=== PATIENT | male | born 1970 | race Two or more races ===

== ENCOUNTER 2017-10-31 15:45 | Emergency (ER) | payer OTHER ==
[2017-10-31 15:53] VITALS: BP 126/70; PULSE 62; TEMP 99.1; BMI 25.0
--- NOTE | 2017-10-31 15:55 | PDOC ---
Rapid Medical Evaluation Chief Complaint: Pain, Acute Time Seen by Provider: 10/31/17 15:51 Medical Evaluation: Allergies Allergy/AdvReac Type Severity Reaction Status Date / Time No Known Allergies Allergy Verified 03/27/16 17:14 10/31/17 15:52 I have performed a brief in person evaluation of this patient. The patient presents with chief complaint of : right elbow pain x 1 month worsening in last 3 days. 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
--- NOTE | 2017-10-31 16:31 | PDOC ---
History of Present Illness - General Chief Complaint: Pain, Acute Stated Complaint: RT ARM PAIN, injury Time Seen by Provider: 10/31/17 15:51 - History of Present Illness Initial Comments: 10/31/17 16:28 47-year-old male without comorbidities presents for evaluation of atraumatic right elbow pain times one month. Past History - Past Medical History Allergies/Adverse Reactions: Allergies Allergy/AdvReac Type Severity Reaction Status Date / Time No Known Allergies Allergy Verified 10/31/17 15:53 Home Medications: Ambulatory Orders NK [No Known Home Medication] 10/31/17 CVA: No COPD: No - Suicide/Smoking/Psychosocial Hx Smoking History: Never smoked Information on smoking cessation initiated: No Hx Alcohol Use: No Drug/Substance Use Hx: No Substance Use Type: None Review of Systems - Review of Systems Musculoskeletal: Yes: See HPI, Joint Pain All Other Systems: Reviewed and Negative *Physical Exam - Vital Signs Last Vital Signs Temp Pulse Resp BP Pulse Ox 99.1 F 62 18 126/70 99 10/31/17 15:51 10/31/17 15:51 10/31/17 15:51 10/31/17 15:51 10/31/17 15:51 - Physical Exam Comments: Right elbow skin color and temperature are normal. Range of motion is full and nonpainful. There is tenderness over the lateral epicondyle. No other areas of tenderness. There is pain at the lateral epicondyle with resisted wrist extension and resisted supination. No evidence of instability. No gross sensorimotor deficits. He is neurovascularly intact. 10/31/17 16:28 Medical Decision Making - Medical Decision Making Lateral epicondylitis right elbow. I'll give him a wrist splint for rest. Radiographs today were negative. No evidence of acute fracture trauma or distractive process. 10/31/17 16:29 *DC/Admit/Observation/Transfer Diagnosis at time of Disposition: Right elbow pain, Lateral epicondylitis - Discharge Dispostion Disposition: HOME Condition at time of disposition: Stable Decision to Admit order: No - Referrals Referrals: Aide Webb NP [Primary Care Provider] - Varinder Chaparro MD [Staff Physician] - - Patient Instructions Printed Discharge Instructions: Lateral Epicondylitis, DI for Lateral Epicondylitis (Tennis Elbow) Additional Instructions: Wear the wrist splint for rest. Continue with Advil and Tylenol as directed. Follow-up with orthopedic surgery in 2-3 days for further evaluation and treatment options. Return to the emergency room should symptoms worsen or go unresolved. - Post Discharge Activity
== END 2017-10-31 17:05 | disposition home or self-care (01) ==
LOC: JERFT 15:45
DX: M25.521 Pain in right elbow (principal); M77.11 Lateral epicondylitis, right elbow
CPT/HCPCS: 73070-TC-RT-FY; 73090-TC-RT-FY; 99281-25

== ENCOUNTER 2019-04-19 09:46 | Emergency (ER) | payer OTHER ==
[2019-04-19 10:10] VITALS: BP 118/78; PULSE 74; TEMP 98.2; BMI 24.2
[2019-04-19] MEDS ORDERED: KETOROLAC TROMETHAMINE 60 MG/2 ML VIAL IM ONE (11:30)
[2019-04-19] MEDS ORDERED: LIDOCAINE 5% TOPICAL PATCH TP ONE (11:30)
[2019-04-19] MEDS ORDERED: LIDOCAINE 5% TOPICAL PATCH ONE (12:13)
[2019-04-19] MEDS ORDERED: KETOROLAC TROMETHAMINE 60 MG/2 ML VIAL ONE (12:13)
--- NOTE | 2019-04-19 13:35 | PDOC ---
History of Present Illness <Grisel Golden - Last Filed: 04/19/19 13:58> - General History Source: Patient Exam Limitations: No Limitations <Oriana Tolentino - Last Filed: 04/22/19 10:15> - General Chief Complaint: Chest Pain Stated Complaint: BACK PAIN Time Seen by Provider: 04/19/19 10:44 Past History <Grisel Golden - Last Filed: 04/19/19 13:58> - Travel Traveled outside of the country in the last 30 days: No Close contact w/someone who was outside of country & ill: No - Past Medical History CVA: No COPD: No - Immunization History Immunization Up to Date: Yes - Psycho Social/Smoking Cessation Hx Smoking History: Never smoked Have you smoked in the past 12 months: No Information on smoking cessation initiated: No Hx Alcohol Use: No Drug/Substance Use Hx: No Substance Use Type: None <Oriana Tolentino - Last Filed: 04/22/19 10:15> - Past Medical History Allergies/Adverse Reactions: Allergies Allergy/AdvReac Type Severity Reaction Status Date / Time No Known Allergies Allergy Verified 04/19/19 10:05 Home Medications: Ambulatory Orders Cyclobenzaprine HCl [Flexeril -] 10 mg PO HS #10 tablet 04/19/19 Ibuprofen 600 mg PO Q6H #30 tablet 04/19/19 Review of Systems - Review of Systems Able to Perform ROS?: Yes Comments:: 04/19/19 14:07 CONSTITUTIONAL: Absent: fever, chills, diaphoresis, generalized weakness, malaise, loss of appetite GASTROINTESTINAL: Absent: abdominal pain, abdominal distension, nausea, vomiting, diarrhea, constipation, melena, hematochezia GENITOURINARY: Absent: dysuria, frequency, urgency, hesitancy, hematuria, flank pain, genital pain MUSCULOSKELETAL: Present: Upper back pain, right shoulder pain, right upper chest wall pain absent: arthralgia, joint swelling SKIN: Absent: rash, itching, pallor NEUROLOGIC: Absent: headache, focal weakness or paresthesias, dizziness, unsteady gait, seizure, mental status changes, bladder or bowel incontinence PSYCHIATRIC: Absent: anxiety, depression, suicidal or homicidal ideation, hallucinations. Is the patient limited Luxembourgish proficient: No <ValeriejaimeOriana - Last Filed: 04/22/19 10:15> *Physical Exam - Vital Signs Last Vital Signs Temp Pulse Resp BP Pulse Ox 98.2 F 74 16 118/78 97 04/19/19 10:05 04/19/19 10:05 04/19/19 10:05 04/19/19 10:05 04/19/19 10:05 <GoldenGrisel Doyna - Last Filed: 04/19/19 13:58> - Vital Signs Last Vital Signs Temp Pulse Resp BP Pulse Ox 98.2 F 74 16 118/78 97 04/19/19 10:05 04/19/19 10:05 04/19/19 10:05 04/19/19 10:05 04/19/19 10:05 - Physical Exam 04/19/19 10:08 GENERAL: Well developed, well nourished. Awake and alert. No acute distress. NECK: Supple. Full ROM. No lymphadenopathy. MUSCULOSKELETAL TTP of the R paraspinous muscles, T2-T6, with palpable knot. Normal range of motion at all joints. No bony deformities or tenderness. No CVA tenderness. EXTREMITIES: No cyanosis. No clubbing. No edema. No calf tenderness. SKIN: Warm and dry. Normal capillary refill. No rashes. No jaundice. NEUROLOGICAL: Alert, awake, appropriate. Cranial nerves 2-12 intact. No deficits to light touch and temperature in face, upper extremities and lower extremities. No motor deficits in the in face, upper extremities and lower extremities. Normoreflexic in the upper and lower extremities. Normal speech. Toes are down- going bilaterally. Gait is normal without ataxia. PSYCHIATRIC: Cooperative. Good eye contact. Appropriate mood and affect. <Oriana Tolentino - Last Filed: 04/22/19 10:15> Heart Score/ECG Review #1 ECG reviewed & interpreted by me at: 13:10 General ECG Interpretation: Sinus Rhythm, Normal Rate, Normal Intervals Compared to previous ECG there are: Previous ECG unavail 04/19/19 13:58 EKG normal sinus rhythm, no interval abnormalities, narrow QRS, ST and T wave segments and morphology normal. Nonspecific T wave abnormalities <ChantelGriselfaheem Naqvi - Last Filed: 04/19/19 13:58> ED Treatment Course - Medications Given in the ED: ED Medications Discontinued Medications Generic Name Dose Route Start Last Admin Trade Name Jgjaime PRN Reason Stop Dose Admin Ketorolac Tromethamine 60 mg 04/19/19 11:30 04/19/19 12:24 Toradol Injection - IM 04/19/19 11:31 60 mg ONCE ONE Administration Lidocaine 1 patch 04/19/19 11:30 04/19/19 12:24 Lidoderm Patch - TP 04/19/19 11:31 1 patch ONCE ONE Administration <Grisel Golden - Last Filed: 04/19/19 13:58> - Medications Given in the ED: ED Medications Discontinued Medications Generic Name Dose Route Start Last Admin Trade Name Freq PRN Reason Stop Dose Admin Ketorolac Tromethamine 60 mg 04/19/19 11:30 04/19/19 12:24 Toradol Injection - IM 04/19/19 11:31 60 mg ONCE ONE Administration Lidocaine 1 patch 04/19/19 11:30 04/19/19 12:24 Lidoderm Patch - TP 04/19/19 11:31 1 patch ONCE ONE Administration <Oriana Tolentino - Last Filed: 04/22/19 10:15> Medical Decision Making - Medical Decision Making 04/19/19 13:57 The patient was seen and evaluated in conjunction with midlevel provider under my direct supervision, ancillary studies were reviewed. I agree with the plan as outlined with SERENE Tolentino. HPI, workup/dispo as outlined. VS reviewed, wnl. anticipate discharge, pcp followup, return precautions <Grisel Golden - Last Filed: 04/19/19 13:58> - Medical Decision Making 04/19/19 15:12 Patient is a 48-year-old male no past medical history who presents to the ER today with upper back pain for 1 week. He states last Sunday he noticed he has back pain in his upper right back which is moved to his lower back, right arm and right upper chest wall. He states it is worse with movement. He works in plumbing. Denies new trauma or remembering how he hurt his back. He has been taking naproxen with little relief of his symptoms. Denies numbness and tingling to the extremities, saddle anesthesia and bladder bowel incontinence A/P: Back pain Pt with TTP of the R paraspinous muscles, T2-T6, with palpable knot consistent with muscle spasm. EKG shows a normal sinus rhythm without ST-T wave changes. Normal intervals and axis. No trauma, or fever. No saddle anesthesia or bladder/bowel incontinence. No CVA tenderness. Pt is neurologically intact on exam with no focal findings. Toradol given with relief of symptoms DC home. Ortho follow up given for if symptoms do not resolve. I discussed the physical exam findings, ancillary test results and final diagnoses with the patient. I answered all of the patient's questions. The patient was satisfied with the care received and felt comfortable with the discharge plan and treatment plan. The Patient agrees to follow up with the primary care physician/specialist within 24-72 hours. Return precautions were given. <Oriana Tolentino - Last Filed: 04/22/19 10:15> Discharge <ChantelGrisel - Last Filed: 04/19/19 13:58> - Discharge Information Problems reviewed: Yes - Admission No <Oriana Tolentino - Last Filed: 04/22/19 10:15> - Discharge Information Clinical Impression/Diagnosis: Back pain Qualifiers: Back pain location: thoracic back pain Chronicity: acute Back pain laterality: right Qualified Code(s): M54.6 - Pain in thoracic spine Condition: Stable Disposition: HOME - Additional Discharge Information Prescriptions: Cyclobenzaprine HCl [Flexeril -] 10 mg PO HS #10 tablet Ibuprofen 600 mg PO Q6H #30 tablet - Follow up/Referral Referrals: Claudia Mcghee NP [Primary Care Provider] - Jair Lopez DO [Staff Physician] - - Patient Discharge Instructions Patient Printed Discharge Instructions: DI for Low Back Pain Additional Instructions: You were evaluated for your back pain today. It is most likely due to a muscle spasm. Your EKG was normal. Please take ibuprofen 600 mg every 6 hours for pain. Please take the Flexeril when you get home today and then again at night. Tomorrow take the medication at night before bed. Do not drink alcohol or drive after taking this medication as it may make you feel drowsy. You may use [id number] BenGay, [place] balm to the areas. Follow-up with your primary care doctor this week. You were also given a referral for orthopedics. Follow-up in 3 to 5 days if your symptoms or not improving. Return to the ER for worsening pain despite treatment, numbness and tingling to your extremities, weakness, lightheadedness, if you have loss of bladder or bowel function, or if you have any changes in your symptoms. Usted fue evaluado por cherry dolor de espalda hoy. Lo ms probable es que se deba a un espasmo muscular. Tu electrocardiograma fue normal. [place] ibuprofeno 600 mg cada 6 horas para el dolor. [place] el Flexeril cuando llegue a casa hoy y luego de nuevo por la noche. Maana tome el medicamento por la noche antes de acostarse. No jeana alcohol ni conduzca despus de sylvain leonel medicamento, ya que puede causar somnolencia. Puede usar BenGay, blsamo de maris sin receta en las reas. Georgi un seguimiento con cherry mdico de atencin primaria esta semana. Tambin le dieron reid referencia para ortopedia. Georgi un seguimiento en 3 a 5 holley si aisha sntomas o no mejoran. Regrese a la bo de emergencias para empeorar el dolor a pesar del tratamiento , entumecimiento y hormigueo en las extremidades, debilidad, aturdimiento, si tiene prdida de la funcin de la vejiga o el intestino, o si tiene algn cambio en aisha sntomas. - Post Discharge Activity Work/Back to School Note: Back to Work
--- NOTE | 2019-04-20 12:09 | EKG ---
Test Reason : Blood Pressure : / mmHG Vent. Rate : 064 BPM Atrial Rate : 064 BPM P-R Int : 158 ms QRS Dur : 088 ms QT Int : 374 ms P-R-T Axes : 025 013 010 degrees QTc Int : 385 ms NORMAL SINUS RHYTHM MINIMAL VOLTAGE CRITERIA FOR LVH, MAY BE NORMAL VARIANT NONSPECIFIC ST AND T WAVE ABNORMALITY ABNORMAL ECG NO PREVIOUS ECGS AVAILABLE Confirmed by ANDREA JONES MD ([id number]) on 04/20/2019 12:09:19 PM Referred By: Confirmed By:ANDREA JONES MD
== END 2019-04-19 13:45 | disposition home or self-care (01) ==
LOC: JER 09:46
PROC: 3E0233Z Introduction of Anti-inflammatory into Muscle, Percutaneous Approach (ICD-10-PCS; principal; 2019-04-19)
DX: M54.6 Pain in thoracic spine (principal)
CPT/HCPCS: 93005; 93010; 96372; 99284-25

== ENCOUNTER 2023-05-16 12:14 | Emergency (ER) | payer OTHER ==
[2023-05-16 12:17] VITALS: BP 132/89; PULSE 66; RESP 18; TEMP 99.1; BMI 24.2
[2023-05-16] MEDS ORDERED: AZITHROMYCIN 500 MG TABLET ONE (13:27)
[2023-05-16] MEDS: AZITHROMYCIN 250 MG TABLET PO ONE (13:29)
== END 2023-05-16 14:14 | disposition home or self-care (01) ==
LOC: JERFT 12:14
DX: R05.9 Cough, unspecified (principal); M79.10 Myalgia, unspecified site; R68.83 Chills (without fever); R59.0 Localized enlarged lymph nodes; J02.9 Acute pharyngitis, unspecified; J06.9 Acute upper respiratory infection, unspecified; Z20.822 Contact with and (suspected) exposure to COVID-19
CPT/HCPCS: 0241U-QW; 71046-TC-FY; 99284-25